=== PATIENT | female | born 1935 | race Caucasian/White ===

== ENCOUNTER 2020-05-26 16:34 | Emergency (ER) | payer MEDICARE ==
[~2020-05-26 16:34] MED LIST: ADULT LOW DOSE81 MG PO; CEFTIN500 MG PO; CEFUROXIME250 MG PO; COZAAR100 MG PO; CRESTOR10 MG PO; DIAMOX 250 MG250 MG PO; DITROPAN 5 MG TA5 MG PO; FEMARA2.5 MG PO; FLEXERIL 10 MG10 MG PO; FLONASE 0.05% N16 GM; FUROSEMIDE40 MG PO; HYDROCHLOROTHIA25 MG PO; IPRAT-ALBUT 0.5-3 ML INH; LEVOTHYROXINE50 MCG PO; LOPRESSOR 25 MG25 MG PO; LOSARTAN POTAS100 MG PO; LOSARTAN-HCTZ1 EAC2 PO; MEDROL4 MG PO; MELATONIN 3 MG1 EAC1 PO; MUCINEX600 MG PO; NITROSTAT 0.40.4 MG SL; NORVASC2.5 MG PO; PERCOCET 5/325 T1 EA PO; PLAVIX 75 MG TA75 MG PO; PRAMIPEXOLE D0.25 MG PO; REMERON15 MG PO; SODIUM CHLORIDE OU; SULFAMETHOXAZO1 EACH PO; SYMBICORT 16010.2 GM INH; TRAMADOL HCL50 MG PO; VASCEPA1 GM PO; VASOTEC 10 MG T10 MG PO; VOLTAREN 0.1%2.5 ML TP; ZOLOFT100 MG PO
[2020-05-26 18:33] LABS: RED BLOOD COUNT 3.67 M/UL (4.00-5.10); WHITE BLOOD COUNT 8.8 K/UL (4.5-11.0)
[2020-05-26 18:52] LABS: BUN/CREATININE RATIO 21 (0-10)
== END 2020-05-26 19:47 | disposition short-term general hospital (02) ==
LOC: ER1 16:34
PROVIDERS: Emergency Medicine
DX: S09.90XA Unspecified injury of head, initial encounter (principal); S01.312A Laceration without foreign body of left ear, initial encounter; R11.10 Vomiting, unspecified; I10 Essential (primary) hypertension; Z95.1 Presence of aortocoronary bypass graft; Z98.86 Personal history of breast implant removal; Z98.890 Other specified postprocedural states; Z79.82 Long term (current) use of aspirin; Z79.02 Long term (current) use of antithrombotics/antiplatelets; Z90.12 Acquired absence of left breast and nipple; Z23 Encounter for immunization; W06.XXXA Fall from bed, initial encounter
CPT/HCPCS: 12013; 70450; 71045; 72125; 80053; 82550; 82553; 83874; 83880; 84484; 85025; 85610; 85730; 90471; 90715; 93005; 96374; 96375; 99283; J0690; J2405; J7030

== ENCOUNTER 2021-04-21 10:34 | Observation (INO) | payer MEDICARE ==
[~2021-04-21] VITALS: Ht 167.6 cm; Wt 122.5 kg
[~2021-04-21 10:34] MED LIST changes: +CEFDINIR300 MG PO; -FEMARA2.5 MG PO; -LEVOTHYROXINE50 MCG PO; -PRAMIPEXOLE D0.25 MG PO; -REMERON15 MG PO; -ZOLOFT100 MG PO
[2021-04-21] MEDS ORDERED: REMERON15 MG PO (11:10)
[2021-04-21] MEDS ORDERED: FEMARA2.5 MG PO (11:10)
[2021-04-21 12:35] LABS: HEMOGLOBIN 12.1 gm/dl (12.3-15.3); RED BLOOD COUNT 3.95 M/UL (4.00-5.10); WHITE BLOOD COUNT 6.4 K/UL (4.5-11.0)
[2021-04-21 13:02] LABS: BUN/CREATININE RATIO 12 (0-10)
[2021-04-21] MEDS ORDERED: LEVOTHYROXINE50 MCG PO (16:35)
[2021-04-21] MEDS ORDERED: ZOLOFT100 MG PO (16:36)
[2021-04-21] MEDS ORDERED: PRAMIPEXOLE D0.25 MG PO (18:10)
[2021-04-21] MEDS ORDERED: MACRODANTIN100 MG PO (18:12)
[2021-04-21] MEDS ORDERED: XANAX 0.25 MG0.25 MG PO (18:14)
[2021-04-21] MEDS ORDERED: MELATONIN5 M2 PO (18:18)
[2021-04-21] MEDS ORDERED: FUROSEMIDE20 MG PO (18:56)
[2021-04-22 05:59] LABS: HEMOGLOBIN 12.1 gm/dl (12.3-15.3); RED BLOOD COUNT 3.97 M/UL (4.00-5.10); WHITE BLOOD COUNT 6.5 K/UL (4.5-11.0)
[2021-04-22 06:31] LABS: BUN/CREATININE RATIO 10 (0-10)
[2021-04-22] MEDS ORDERED: TRAMADOL HCL50 MG PO (18:14)
[2021-04-23 06:33] LABS: HEMOGLOBIN 11.9 gm/dl (12.3-15.3); RED BLOOD COUNT 4.01 M/UL (4.00-5.10); WHITE BLOOD COUNT 5.7 K/UL (4.5-11.0)
[2021-04-23 06:59] LABS: BUN/CREATININE RATIO 10 (0-10)
[2021-04-23] MEDS ORDERED: MECLIZINE HCL25 MG PO (10:54)
== END 2021-04-23 16:10 | disposition home health service (06) ==
LOC: ER1 10:34 → MED SURG 4 15:46 → CDU 15:46 → MED SURG 4 17:20
PROVIDERS: Family Medicine; Physician Assistant Medical; ADMIT Internal Medicine
DX: R42 Dizziness and giddiness (principal); R29.6 Repeated falls; I25.10 Atherosclerotic heart disease of native coronary artery without angina pectoris; J44.9 Chronic obstructive pulmonary disease, unspecified; N18.30 Chronic kidney disease, stage 3 unspecified; E03.9 Hypothyroidism, unspecified; G93.89 Other specified disorders of brain; I25.2 Old myocardial infarction; E78.5 Hyperlipidemia, unspecified; E66.01 Morbid (severe) obesity due to excess calories; Z68.41 Body mass index [BMI] 40.0-44.9, adult; Z20.822 Contact with and (suspected) exposure to COVID-19; Z66 Do not resuscitate; Z95.5 Presence of coronary angioplasty implant and graft; Z99.81 Dependence on supplemental oxygen; Z86.73 Personal history of transient ischemic attack (TIA), and cerebral infarction without residual deficits; Z79.02 Long term (current) use of antithrombotics/antiplatelets; Z79.82 Long term (current) use of aspirin; Z79.890 Hormone replacement therapy; Z79.899 Other long term (current) drug therapy; Z88.5 Allergy status to narcotic agent; Z87.891 Personal history of nicotine dependence; Z85.3 Personal history of malignant neoplasm of breast
CPT/HCPCS: ECHO; 36415; 36600; 70450; 70551; 71045; 72125; 72128; 72131; 80048; 80053; 81001; 82009; 82550; 82553; 82803; 83605; 83735; 83874; 83880; 84100; 84132; 84439; 84443; 84484; 85025; 85027; 93005; 93306; 93880; 97162; 97166; 97530; 99285; G0378; J3475; U0002